=== PATIENT | female | born 1960 | race Caucasian/White ===

== ENCOUNTER → 2016-11-29 | Outpatient (CLI) | payer OTHER ==
[~2016-11-29] MED LIST: ACETAMINOPHEN PO; ADVAIR HFA 115-12 GM INH; ALBUTEROL 0.5ML INH; ALBUTEROL MININEB NEB; ALBUTEROL17 GM; ALBUTEROL17 GM INH; ALLEGRA180 MG PO; ALPRAZOLAM; ALPRAZOLAM PO; AMLODIPINE BESY10 MG PO; AMLODIPINE BESYL5 MG PO; ASPIRIN EC81 M1 PO; ASPIRIN ENTERI325 M1 PO; ASPIRIN PO; ASPIRIN325 M1 PO; BACTRIM DS TABL1 TAB PO; BENZONATATE PO; CADUET 10 MG/101 TAB PO; CARDIZEM SR PO; CARTIA XT PO; COMBIVENT MININEB; COUMADIN PO; CRESTOR PO; CRESTOR10 MG PO; DARVOCET-N 1001 TAB PO; DICYCLOMINE HCL20 MG PO; DOXYCYCLINE PO; FLEXERIL PO; GABAPENTIN100 M1 PO; IBUPROFEN PO; IMODIUM2 MG PO; KETOPROFEN PO; LASIX20 MG PO; LEVAQUIN PO; LIPITOR PO; LISINOPRIL PO; LORTAB 7.5-5001 TAB; LORTAB 7.5-5001 TAB PO; MEDROL PO; NAPROXEN PO; NEURONTIN100 MG PO; NEXIUM PO; NITROGYLCERIN SUBLINGUAL; NORVASC; NORVASC PO; NORVASC2.5 MG PO; PEPCID AC20 MG PO; PERCOCET 7.5-31 EACH; PHENERGAN PR; PHENERGAN25 MG PO; PRAVACHOL PO; TAMIFLU75 MG PO; TUMS; VICODIN 5/500 T1 TAB PO; VOLTAREN75 MG PO; XANAX0.5 MG PO; ZITHROMAX PO; ZOCOR PO; ZOFRAN PO; ZOLOFT PO; albuterol IN
--- NOTE | ~2016-11-29 | US24 ---
[facility] A Service of [facility] & [facility] RADIOLOGY TEXT RESULTS PATIENT: NALINI ZAYAS LOCATION: [facility] : 58 UNIT #: [id number] AGE: [address]: Candido Obando MD SEX: F ORDER DR: [id number] [facility] [address] [place], [place] [address] [id number] O MR#: [id number] Acc #: [id number] NAME: NALINI ZAYAS. : 1960 SEX: F STUDY DATE/TIME: 11/29/2016 14:22 UNIT: [facility] ROOM: STUDY DESCRIPTION: US Breast Unilateral Attending Physician: Candido Obando M.D. Ordering Physician: Candido Obando M.D. Primary Care Physician: Candido Obando M.D. MEDICAL IMAGING REPORT This report is preliminary unless electronic signature is present EXAM Left breast ultrasound 11/29/2016 COMPARISON Bilateral diagnostic mammogram on the same day. INDICATIONS 55-year female with a 1 week history of a pea-sized tender lump in the 3 o'clock left breast. She denies personal or family history breast cancer. FINDINGS/IMPRESSION Please see separately dictated report of bilateral diagnostic mammography on the same date for full sonographic findings in the left breast today as well as final impression and recommendations. BIRADS: 1 - Negative Dictated by... Santos Obando M.D. THIS IS AN ELECTRONICALLY VERIFIED REPORT Santos Obando M.D. at 12/01/2016 11:00 AM Gay TD: 11/29/2016 18:04 JOB #: [id number] MEDICAL IMAGING REPORT Page 1 of 1 COPY
--- NOTE | ~2016-11-29 | MY6 ---
[facility] A Service of [facility] RADIOLOGY TEXT RESULTS PATIENT: NALINI ZAYAS LOCATION: [facility] : 58 UNIT #: [id number] AGE: [address]: Candido Obando MD SEX: F ORDER DR: [id number] [facility] [address] [place], [place] [address] [id number] O MR#: [id number] [facility] #: [id number] NAME: NALINI ZAYAS. : 1960 SEX: F STUDY DATE/TIME: 11/29/2016 13:50 UNIT: [facility] ROOM: STUDY DESCRIPTION: MY Mammogram Dx Dig Amanuel Attending Physician: Candido Obando M.D. Ordering Physician: Candido Obando M.D. Primary Care Physician: Candido Obando M.D. MEDICAL IMAGING REPORT This report is preliminary unless electronic signature is present EXAM Bilateral digital diagnostic mammogram with CAD COMPARISON Left diagnostic mammogram dated May 02, 2015 as well as other mammograms dated April 07, 2015, November 29, 2008, November 15, 2008 and November 10, 2006. INDICATIONS 55-year-old female with a tender pea-sized lump in the 3 o'clock left breast for approximately 1 week. She denies personal or family history of breast cancer. FINDINGS There are scattered fibroglandular densities. There are no suspicious findings in either breast. Triangular marker denotes an area patient concern at approximately 3 o'clock position of the anterior third left breast. There is no corresponding mammographic abnormality. Sonographic evaluation was performed throughout the area of patient concern which she identified to be approximately the 3 o'clock position, approximately 4 cm from the left nipple. Focused physical exam in this location demonstrated palpable fibroglandular nodularity without discrete suspicious palpable mass or overlying skin change. Sonographic evaluation demonstrated normal echogenic fibroglandular tissue interspersed with benign fat lobules. There is no underlying sonographic abnormality. IMPRESSION 1. No mammographic or sonographic evidence of malignancy in the left breast. Patient was counseled on possible treatments of breast pain, including vitamin E therapy. She is instructed to report any new or worsening complaints to her primary care physician. [facility]. [facility] A Service of [facility] RADIOLOGY TEXT RESULTS PATIENT: NALINI ZAYAS LOCATION: [facility] : 58 UNIT #: [id number] AGE: [address]: Candido Obando MD SEX: F ORDER DR: 2.There is no mammographic evidence of malignancy in the right breast. In the absence of new or worsening complaints, continued annual screen mammography is recommend. Findings and recommendations were discussed with the patient today. BIRADS: 1 Negative. Patients over the age of 40 are entered into a reminder system with target due date for the next mammogram. A result letter will also be sent to the patient. Dictated by... Santos Obando M.D. THIS IS AN ELECTRONICALLY VERIFIED REPORT Santos Obando M.D. at 12/01/2016 11:00 AM SNI/teagan TD: 11/29/2016 18:04 JOB #: [id number] MEDICAL IMAGING REPORT Page 1 of 1 COPY
== END | disposition home or self-care (01) ==
LOC: CMAM 13:28
DX: N63 Unspecified lump in breast (principal); E55.9 Vitamin D deficiency, unspecified
CPT/HCPCS: 76641; G0204

== ENCOUNTER → 2016-12-01 | Outpatient (CLI) | payer OTHER ==
--- NOTE | ~2016-12-01 | BD1 ---
[facility] A Service of [facility] & [facility] RADIOLOGY TEXT RESULTS PATIENT: NALINI ZAYAS LOCATION: [facility] : 58 UNIT #: [id number] AGE: [address]: Candido Obando MD SEX: F ORDER DR: [id number] [facility] [address] [place], [place] [address] [id number] O MR#: [id number] Acc #: [id number] NAME: NALINI ZAYAS. : 1960 SEX: F STUDY DATE/TIME: 12/01/2016 11:11 UNIT: [facility] ROOM: STUDY DESCRIPTION: BD Dexa Bone Dens 1+ Site Attending Physician: Candido Obando M.D. Ordering Physician: Candido Obando M.D. Primary Care Physician: Candido Obando M.D. MEDICAL IMAGING REPORT This report is preliminary unless electronic signature is present EXAM DXA scan 12/01/2016 HISTORY Vitamin D deficiency, status post menopause with no hormone replacement therapy. Osteopenia. Hypertension with blood pressure medication for 7 years. Smoking history for 20 years. FINDINGS Bone mineral density in the lumbar spine from L1-L4 was 0.915 g/cm2 which is 1.2 standard deviations below the mean when compared to the young adult reference population which is characteristic of osteopenia. This is 00 standard deviations from the mean when compared to the age-matched population. Bone mineral density in the left femoral neck was 0.626 g/cm2 which is 2 standard deviations below the mean when compared to the young adult reference population which is characteristic of osteopenia. This is 0.9 standard deviations below the mean when compared to the age-matched population. IMPRESSION Bone mineral density in the lumbar spine and left hip characteristic of osteopenia. Dictated by... Orlando Morin M.D. THIS IS AN ELECTRONICALLY VERIFIED REPORT Orlando Morin M.D. at 12/02/2016 8:07 AM AYAKA/trisha TD: 12/01/2016 13:04 JOB #: [id number] [facility] A Service of [facility] & [facility] RADIOLOGY TEXT RESULTS PATIENT: NALINI ZAYAS LOCATION: [facility] #: [id number] : 58 UNIT #: [id number] AGE: [address]: Candido Obando MD SEX: F ORDER DR: MEDICAL IMAGING REPORT Page 1 of 1 COPY
== END | disposition home or self-care (01) ==
LOC: CWCC 10:52
DX: E55.9 Vitamin D deficiency, unspecified (principal); M85.89 Other specified disorders of bone density and structure, multiple sites
CPT/HCPCS: 77080

== ENCOUNTER 2016-12-16 18:40 | Emergency (ER) | payer OTHER ==
--- NOTE | ~2016-12-16 | CR63 ---
[facility] A Service of [facility] RADIOLOGY TEXT RESULTS PATIENT: NALINI ZAYAS LOCATION: [facility] : 58 UNIT #: [id number] AGE: [address]: Kj Delaney MD SEX: F ORDER DR: [id number] [address] [id number] [facility]. [place], [place] [address] [id number] E MR#: [id number] Acc #: [id number] NAME: NALINI ZAYAS. : 1960 SEX: F STUDY DATE/TIME: 12/16/2016 20:57 UNIT: [facility] ROOM: STUDY DESCRIPTION: CR Chest 2 View Attending Physician: Kj Delaney M.D. Ordering Physician: Kj Delaney M.D. Primary Care Physician: Candido Obando M.D. MEDICAL IMAGING REPORT This report is preliminary unless electronic signature is present EXAM Chest x-ray HISTORY Shortness of breath. Chest pain. Cough and congestion for the past week. COMPARISON STUDIES 12/22/2014. TECHNIQUE Two views of the chest were obtained. FINDINGS Two views of the chest show emphysema. The lungs are clear with no suspicious infiltrates. The heart and mediastinum have a normal configuration. Both lungs are clear. IMPRESSION Emphysema. No active disease. Dictated by... Bjorn Cash M.D. THIS IS AN ELECTRONICALLY VERIFIED REPORT Bjorn Cash M.D. at 12/16/2016 10:23 PM RLF/pcl TD: 12/16/2016 21:42 JOB #: [id number] [facility] A Service of [facility] RADIOLOGY TEXT RESULTS PATIENT: NALINI ZAYAS LOCATION: [facility] : 58 UNIT #: [id number] AGE: [address]: Kj Delaney MD SEX: F ORDER DR: MEDICAL IMAGING REPORT Page 1 of 1 COPY
--- NOTE | ~2016-12-16 | EKG ---
PATIENT: NALINI ZAYAS UNIT #: [id number] Ventricular Rate: 66 BPM Atrial Rate: 66 BPM P-R Interval: 156 ms QRS Duration: 78 ms Q-T Interval: 406 ms QTC Calculation(Bezet): 425 ms P Seale: 85 degrees Calculated R Seale: 77 degrees Calculated T Seale: 69 degrees Diagnosis Line: Normal sinus rhythm Diagnosis Line: Nonspecific ST abnormality Diagnosis Line: Abnormal ECG Diagnosis Line: When compared with ECG of 22-DEC-2014 10:34, Diagnosis Line: No significant change was found Diagnosis Line: Confirmed by LISETTE CLAIRE MD ([id number]) on Diagnosis Line: 12/17/2016 11:10:08 PM INTERPRETING MD: JANET
[2016-12-16 17:30] LABS: BASOPHIL% 0.3 % (0-2.5); HEMATOCRIT 41.1 % (35.0-45.0); HEMOGLOBIN 13.9 gm/dL (12.0-16.0); LYMPHOCYTE# 1.1 X10e3 (1.0-3.5); LYMPHOCYTE% 24.9 % (17.0-45.0); MEAN CELL VOLUME 87.8 FL (83-96); MEAN CORPUSCULAR HEMOGLOBIN 29.7 PG (28-34); MEAN CORPUSCULAR HGB CONC 33.9 g/dL (30-36); MEAN PLATELET VOLUME 7.8 FL (6.5-11.5); MONOCYTE# 0.7 X10e3 (0-1.0); MONOCYTE% 15.4 % (3.0-12.0); NEUTROPHIL# 2.6 X10e3 (1.5-7.1); NEUTROPHIL% 59.4 % (40-75); PLATELET COUNT 128 X10e3 (140-420); RED BLOOD COUNT 4.68 X10e (3.90-5.30); RED CELL DISTRIBUTION WIDTH 13.2 % (11.0-15.5); WHITE BLOOD COUNT 4.4 X10e3 (4.0-10.5)
[2016-12-16 17:36] LABS: DIFF IND NO
[2016-12-16 17:54] LABS: ALBUMIN SERUM 4.1 g/dL (3.5-5.0); BILIRUBIN, DIRECT 0.1 mg/dL (0.0-0.2); BILIRUBIN,INDIRECT 0.6 mg/dL (0.0-0.9); BILIRUBIN,TOTAL 0.7 mg/dL (0.2-2.0); BUN/CREATININE RATIO 17.14; CALCIUM SERUM 8.8 mg/dL (8.4-10.2); CREATININE SERUM 0.7 mg/dL (0.6-1.4); GLOM FILT RATE Estimated 96.9 mL/min (>60); POTASSIUM 3.8 mmol/L (3.5-5.1)
[2016-12-16 18:26] LABS: POC - CKMB 3.4 ng/mL (0.0-7.9); POC - TROPONIN <0.05 ng/mL (<=0.05)
[2016-12-16 19:48] LABS: POC - CKMB 4.1 ng/mL (0.0-7.9); POC - TROPONIN <0.05 ng/mL (<=0.05)
== END 2016-12-16 22:00 | disposition home or self-care (01) ==
LOC: CED 18:40
PROVIDERS: Emergency Medicine
DX: J44.1 Chronic obstructive pulmonary disease with (acute) exacerbation (principal); I25.10 Atherosclerotic heart disease of native coronary artery without angina pectoris; K21.9 Gastro-esophageal reflux disease without esophagitis; Z90.49 Acquired absence of other specified parts of digestive tract
CPT/HCPCS: 36415; 71020; 80048; 80076; 82553; 84484; 85025; 93005; 94640; 96360; 99284; J2930